=== PATIENT | female | born 1970 | race Caucasian/White ===

== ENCOUNTER 2022-05-06 06:48 | Outpatient (CLI) | payer OTHER, SELFPAY | END 2022-05-06 06:49 | disposition home or self-care (01) | PROVIDERS: PCP Physician Assistant Medical; Visit Provider Family Medicine | DX: M51.36 Other intervertebral disc degeneration, lumbar region (principal); M54.16 Radiculopathy, lumbar region | CPT/HCPCS: 62323; J0702; Q9966 ==

== ENCOUNTER 2024-01-10 02:55 | Emergency (ER) | payer OTHER, SELFPAY ==
[2024-01-10 03:06] VITALS: BP 144/84; PULSE 98; RESP 18; TEMP 35.9; O2SAT 95; BMI 37.1
--- NOTE | 2024-01-10 03:47 | CRLHL7_ITS ---
For Patients: As a result of the Century Cures Act, medical imaging exams and procedure reports are released immediately into your electronic medical record. You may view this report before your referring provider. If you have questions, please contact your health care provider. INDICATION: Abdominal pain and bloody stools, colonoscopy 5 days ago. COMPARISON: None. TECHNIQUE: CT of the abdomen and pelvis with intravenous contrast. Multiplanar axial, coronal, and sagittal reformats were reconstructed. Contrast: 122 mL Isovue 370. FINDINGS: Lung bases: There is a 2 millimeter punctate nodule in the right middle lobe on series 3, image 1. Very high density for size. Other calcified granulomas in the right lower lobe. Calcified lymph nodes in the right hilum consistent with old healed granulomatous disease. No further specific follow-up is recommended. Liver: Mild diffuse hepatic steatosis. Gallbladder and bile ducts: Cholecystectomy. No bile duct dilation. Pancreas: Normal. Spleen: Normal. Adrenal glands: Normal. Kidneys: Normal parenchyma. No cyst or solid mass. No calculi. No urinary tract dilation. Urinary bladder: Normal. Pelvis: No cyst or mass. Vessels: Normal. Widely patent mesenteric vasculature. Bowel: No dilated or inflamed bowel. Normal appendix. No stool burden. Lymph nodes: No adenopathy. Peritoneum: No ascites. No free air. Abdominal wall: No hernia. Bones: No fractures. No focal worrisome bone lesions. IMPRESSION: Mild diffuse hepatic steatosis. Normal CT appearance of the bowel. Please note that all CT scans at this facility use dose modulation, iterative reconstruction, and/or weight-based dosing when appropriate to reduce radiation dose to as low as reasonably achievable. Dictated by Nancy Gill MD @ 01/10/2024 4:57:53 AM (Electronically Signed)
[2024-01-10] MEDS: ONDANSETRON 2 MG/ML inj 4 MG IVP (03:57)
[2024-01-10 03:58] LABS: Basophils Percent Auto 0.2 % (0.0-3.0); Eosinophils Percent Auto 1.7 % (0.0-7.0); Hematocrit 44.8 % (33.0-51.0); Hemoglobin* 14.6 gm/dL (12.0-16.0); Immature Granulocytes Pct Auto 0.3 %; Mean Corpuscular HGB Conc 33 gm/dL (32-36); Mean Corpuscular Hemoglobin 27 pg (26-34); Mean Corpuscular Volume 83 fL (80-100); Neutrophils Percent Auto 76.8 % (42.0-72.0); Platelet Count* 300 K/uL (140-440); RDW Coefficient of Variation % 13.6 % (11.5-15.5); Red Blood Count 5.41 m/uL (4.00-5.20); White Blood Count* 13.72 K/uL (4.50-11.00)
[2024-01-10 04:01] LABS: Slide Review Reflex No
--- OUTSIDE RECORDS SUMMARY | 2024-01-10 04:03 | XMS_ITS | Clinical Summary ---
Author Organization [facility] Address [place], [place] [address] Care Team Providers Care Welt Maker Name Role Phone Vickie Ordoñez Primary Care Provider Allergies No known active allergies Medications Medication Sig Dispensed Refills Start Date End Date Status SUMAtriptan (IMITREX) 50 mg tabletIndications:Mi graine with aura, not intractable, without status migrainosus Take 1 Tablet (50 mg) by mouth every 2 hours if needed for Migraine. Give at minimum 2hrs apart. Max Dose: 200mg per 24hrs. 10 Tablet 3 10/22/2020 Active topiramate (TOPAMAX) 50 mg tabletIndications:Mi graine with aura, not intractable, without status migrainosus Take 1 Tablet (50 mg) by mouth in the morning and 1 Tablet (50 mg) in the evening. 180 Tablet 3 01/22/2022 Active cyclobenzaprine (FLEXERIL) 10 mg tabletIndications:Sa croiliac joint pain,Trochanteric bursitis of right hip Take 1 Tablet (10 mg) by mouth at bedtime if needed for Muscle Spasm. 20 Tablet 01/22/2022 Active acetaminophen (TYLENOL) 325 mg tabletIndications:St atus post hysteroscopy Take 1-2 Tablets (325-650 mg) by mouth every 4 hours if needed (mild pain). Max acetaminophen dose: 4000mg in 24 hrs. 100 Tablet 12/08/2022 Active ibuprofen (ADVIL; MOTRIN) 200 mg tabletIndications:St atus post hysteroscopy Take 2-4 Tablets (400-800 mg) by mouth every 6 hours if needed for Pain (mild pain). 100 Tablet 12/08/2022 Active sennosides-docusate (SENOKOT S) (8.6-50 mg) tabletIndications:Po st-op pain Take 1-2 Tablets by mouth 2 times daily if needed for Constipation. 30 Tablet 01/13/2023 Active nystatin (MYCOSTATIN) 100,000 unit/mL suspensionIndication s:Thrush Swish and swallow 5 mL (500,000 units) by mouth four times daily. 60 mL 04/07/2023 Active meclizine (ANTIVERT) 25 mg tabletIndications:Be nign paroxysmal positional vertigo, unspecified laterality TAKE 1 TABLET(25 MG) BY MOUTH EVERY 6 HOURS NEEDED FOR VERTIGO OR NAUSEA OR VOMITING 30 Tablet 07/01/2023 Active methylPREDNISolone (Medrol, Miles,) 4 mg tabletIndications:Soniya mbar radiculopathy Take by mouth as instructed per packaging. 21 Tablet 09/14/2023 Active ondansetron (ZOFRAN ODT) 4 mg disintegrating tabletIndications:Na usea DISSOLVE 1 TABLET(4 MG) ON THE TONGUE EVERY 8 HOURS NEEDED FOR NAUSEA OR VOMITING 30 Tablet 1 10/25/2023 Active polyethylene glycol-electrolyte (GOLYTELY) 236-22.74-6.74 -5.86 gram suspensionIndication s:Encounter for screening colonoscopy Drink 2 liters the day before colonoscopy and 2 liters 6 hours before colonoscopy appointment 4000 mL 12/28/2023 Active Hospital, Clinic, or Other Facility Administered Medication Ordered Dose Route Frequency Start Date End Date Status fentaNYL (PF) (SUBLIMAZE) 50 mcg/mL injection 200 mcgIndications:Encounter for screening colonoscopy 200 mcg IV ONE TIME 01/06/2024 01/06/2024 Ended midazolam (VERSED) injection 4 mgIndications:Encounter for screening colonoscopy 4 mg IV ONE TIME 01/06/2024 01/06/2024 End ed Active Problems Problem Noted Date Diagnosed Date Complex endometrial hyperplasia with atypia 02/2023 Status post hysteroscopy 12/08/2022 Post-menopausal bleeding 12/08/2022 Thickened endometrium 12/08/2022 Encounters Date Type Department Care Team Description 01/06/2024 10:00 AM CDT Office Visit [address] [place] [address] Cecilio Chou MD Procedure (Colonoscopy) 01/05/2024 Travel 01/05/2024 Telephone [address] [place] [address] Cecilio Chou MD Questions (diet) 01/01/2024 [address]phone [address] [place] [address] Cecilio Chou MD Appointment Reminder (Colonoscopy 01/06/24) 12/07/2023 [address]phone [address] [place] [address] Cecilio Chou MD Screening 11/17/2023 Telephone [address] [place] [address] Vickie Ordoñez PA Questions (Recommendation for Mother's PCP ) 10/23/2023 2:40 PM CDT Ancillary Procedure [address] [place] [address] 10/23/2023 Refill [address] [place] [address] Vickie Ordoñez PA Refill Request (Ondansetron) 10/23/2023 Travel from Last 3 Months Immunizations Name Administration Dates Next Due Td (Age >=7 Years) 07/06/1986 Tdap 06/14/2008 Family History Medical History Relation Name Comments Cancer Father Hyperlipidemia Father Hypertension Father Good Health Mother Cancer Other none Diabetes Paternal Grandmother Diabetes Paternal Uncle 1 Diabetes Paternal Uncle 2 Cancer-breast No Family History Relation Name Status Comments Father Alive Mother Alive Other Paternal Grandmother Paternal Uncle 1 Paternal Uncle 2 Social History Tobacco Use Types Packs/Day Years Used Date Smoking Tobacco: Never Smokeless Tobacco: Never Tobacco Cessation:Counseling Given: Not Answered Alcohol Use Standard Drinks/Week Comments Yes 0 (1 standard drink = 0.6 oz pur e alcohol) 1-2 times / month PHQ-2 Answer Date Recorded PHQ-2 TOTAL SCORE 0 01/22/2022 Social Connections Answer Date Recorded Frequency of Communication with Friends and Fami ly Not on file 09/19/2023 Financial Resource Strain Answer Date R ecorded Difficulty of Paying Living Expenses 3 09/15/2022 Difficulty of Paying Living Expenses Not on file 09/15/2022 Food Insecurity Answer Date Recorded Worried About Running Out of Food in the Last Ye ar 1 09/15/2022 Transportation Needs Answer Date Record ed Lack of Transportation (Medical) 1 09/15/2022 Housing Stability Answer Date Recorded Unable to Pay for Housing in the Last Year 1 09/15/2022 Sex and Gender Information Value Date Recorded Sex Assigned at Not on file Gender Identity Not on file Sexual Orientation Not on file Obstetrics History Para Term AB IAB SAB Ectopic Multiple Livin g Live Births 3 3 3 3 Date Outcome GA Total Labor Labor/2nd/3rd Weight Sex Type Anes PTL Lupe A1 A5 Name Clin Term Term Term Last Filed Vital Signs Vital Sign Reading Time Taken Comments Blood Pressure 122/72 01/06/2024 11:02 AM CDT Pulse 74 01/06/2024 11:02 AM CDT Temperature 36.2 ??C (97.1 ??F) 01/13/2023 11:45 AM C DT Respiratory Rate 14 01/06/2024 11:02 AM CDT Oxygen Saturation 97% 01/06/2024 11:02 AM CDT Inhaled Oxygen Concentration - - Weight 108.9 kg (240 lb) 07/20/2023 1:05 PM POPULATION HEALTH MANAGER Height 167.6 cm (5' 6) 01/13/2023 6:27 AM CDT Body Mass Index 38.74 01/13/2023 6:27 AM CDT Plan of Treatment Health Maintenance Due Date Last Done Comments HIV for age 15-65 09/26/1986 Hepatitis C screening for age 18-79 09/26/1989 Tetanus booster 06/14/2018 06/14/2008, 07/06/1986 Zoster (shingles) series for age 50+ (1 of 2) 09/26/2021 Depression screening for age 12+ 01/22/2023 01/22/2022, 10/22/2020, 07/07/2019, Additional history exists COVID-19 vaccine series ( - 2022- season) 2023 BMI (ht and wt on same day) for age 18+ 01/08/2024 01/07/2023, 01/22/2022, 10/22/2020, Additional history exists Influenza for age 50-64 03/06/2024 Pap test for age 21-65 07/05/2024 9, 07/05/2019, 06/14/2008 Mammogram for age 45-75 10/22/2024 10/23/2023, 02/05 Lipids for age 45-75 01/22/2027 01/22/2022, 07/05/20 Colonoscopy through age 75 01/05/2034 01/06/2024, Tdap Completed 06/14/2008 Pneumococcal series for age 6-64 Aged Out No longer eligible based on patient's age to complete this topic Procedures Procedure Name Priority Date/Time Associated Diagnosis Comments COLONOSCOPY 01/06/2024 10:23 AM CDT XR MAMMO CAILIN BILAT SCREEN Routine 10/23/2023 2:59 PM CDT Encounter for screening mammogram for malignant neoplasm of breast LIPID PANEL W REFLEX MEASURED LDL Routine 01/22/2022 9:49 AM CDT Screening cholesterol level CHILDREN'S LITERATURE PROFESSOR THIN PREP PAP SCREEN IMAGED Routine 07/05/2019 10:38 AM POPULATION HEALTH MANAGER Screening for cervical cancer from Last 3 Months or Most Recently Relevant to Health Maintenance Results * COLONOSCOPY (01/06/2024 10:23 AM CDT) 01/06/2024 10:2 3 AM CDT Narrative Transcriptions Cecilio Chou MD - 01/06/2024 10:51 AM CDT Patient Name: Page Perdue Procedure Date: 01/06/2024 Gender: Female Date of : 1970 Admit Type: Outpatient Procedure: Colonoscopy Proceduralist: Cecilio Chou MD , Lyubov Shearer RN(Nurse), Raquel Wu (Nurse) Indications/Pre-Op Diagnosis: Screening for colorectal malignant neoplasm, This is the patient's first colonoscopy Medications: Fentanyl 200 micrograms IV, Midazolam 4 mgIV, The level of sedation administered wasmoderate Procedure Description: The patient had risks, benefits and alternatives explained to andgave informed consent. The patient had a stable cardiopulmonary status and judged an adequate candidate for conscious sedation. The endoscope [id number] was passed through the anus andadvanced to the cecum, identified by appendiceal orifice and ileocecal valve.The colonoscopy was performed without difficulty. The patient toleratedthe procedure well. The quality of the bowel preparation was good. The ileocecal valve, appendiceal orifice, and rectum were photographed. Complications: No immediate complications. Estimated Blood Loss & Specimen: Estimated blood loss: none. Specimen collected - None Findings: The perianal and digital rectal examinations were normal. Scattered small-mouthed diverticula were found in the sigmoidcolon. The exam was otherwise without abnormality on direct and retroflexion views. Impressions/Post-Op Diagnosis: - Diverticulosis in the sigmoid colon. - The examination was otherwise normal on direct and retroflexionviews. - No specimens collected. Recommendation: - Patient has a contact number available for emergencies. The signsand symptoms of potential delayed complications were discussed with the patient. Return to normal activities tomorrow. Written discharge instructions were provided to the patient. - Resume previous diet. - Continue present medications. - Repeat colonoscopy in 10 years for screening purposes. Moderate Sedation: A time out was performed before the procedure. Moderate (conscious) sedation was administered by the endoscopy nurse and supervised bythe endoscopist. The following parameters were monitored: oxygensaturation, heart rate, blood pressure, EKG, CO2, respiratory rate, adequacy of pulmonary ventilation and reponse to care. Please refer to the patient's medical record flowsheets and nursing notes for moderate sedation details. Total physician intraservice time was 13 minutes. Cecilio Chou MD 01/06/2024 10:51:39 AM This report has been signed electronically. Note Initiated On: 01/06/2024 10:23 AM Procedure Code(s): --- Professional --- 12012, Colonoscopy, flexible; diagnostic, including collection of specimen(s) bybrushing or washing, when performed (separateprocedure) Diagnosis Code(s): --- Professional --- Z12.11, Encounter for screening formalignant neoplasm of colon K57.30, Diverticulosis of large intestine without perforation or abscess withoutbleeding CPT copyright 2022 [employer]. All rights reserved. The codes documented in this report are preliminary and upon plant engineering manager reviewmay be revised to meet current compliance requirements. Scope In: 10:34:23 AM Scope Withdrawal Time 0 hours 6 minutes 42 seconds Scope Out: 10:44:30 AM Cecilio Chou MD PROCEDURE ORD * XR MAMMO CAILIN BILAT SCREEN (10/23/2023 2:59 PM CDT) Anatomical Region Laterality Modality BREASTS, Breast Left, Breast Right Bilateral Mammography Impressions 10/23/2023 3:04 PM CDT ??There is no radiographic evidence for malignancy. ??Recommend annual mammograms. MAMMOGRAM ASSESSMENT: ??ACR 1 Negative PATIENTS: You will also receive a letter with your examination results in an easy to read format. ??If you have questions about your results, please contact your referring provider. Narrative 10/23/2023 3:04 PM CDT For Patients: As a result of the 21st Century Cures Act, medical imaging exams and procedure reports are released immediately into your electronic medical record. You may view this report before your referring provider. If you have questions, please contact your health care provider. XR MAMMO CAILIN BILAT SCREEN [[id number]] CLINICAL HISTORY: ??This is an asymptomatic 53 y.o. patient. INDICATION FOR EXAM: Mammogram Screening. TECHNIQUE: CC & MLO views were obtained. ??This study was evaluated with the assistance of Computer-Aided Detection. Breast Tomosynthesis was used in interpretation. COMPARISON FILM: Yes 02/05/22 [facility] ?? FINDINGS: ??The breasts have scattered areas of fibroglandular density. There are no dominant masses, suspicious micro calcifications or areas of architectural distortion. Vickie CLEMENS MAMMO * (ABNORMAL) LIPID PANEL W REFLEX MEASURED LDL (01/22/2022 9:49 AM CDT) CHOLESTEROL,TOTAL 194 100 - 199 mg/dL 01/22/2022 6:12 PM CDT [facility] TRIGLYCERIDES 160(H) <150 mg/dL 01/22/2022 6:12 PM CDT [facility] HDL CHOLESTEROL 48 >40 mg/dL 6:12 PM CDT [facility] NON-HDL CHOLESTEROL 146(H) <145 mg/dl 01/22/2022 6:12 PM CDT [facility] CHOL/HDL RATIO 4.04 <4.50 01/22/2022 6:12 PM CDT [facility] LDL CHOLESTEROL 114 <=130 mg/dL 01/22/2022 6:12 PM CDT [facility] VLDL CHOLESTEROL 32(H) <=30 mg/dL 01/22/2022 6:12 PM CDT [facility] PROVIDER ORDERED STATUS RANDOM 01/22/2022 6:12 PM CDT [facility] Blood BLOOD SPECIMEN / Unknown Venipuncture / Unknown 01/22/2022 9:49 AM CDT 01/22/2022 9:50 AM CDT Vickie CLEMENS [facility] [address] [place] [address], [place] * CHILDREN'S LITERATURE PROFESSOR THIN PREP PAP SCREEN IMAGED (07/05/2019 10:38 AM POPULATION HEALTH MANAGER) Case Report Gynecologic Cytology Report ? Case: [id number] ? Authorizing Provider: ??Vickie Ordoñez PA Collected: ? 07/05/2019 1038 ? Ordering Location: ? [facility] ?? Received: ?07/05/2019 1110 ? Clinic ? First Screen: ?Hemalatha Dorado ? Specimen: ?CHILDREN'S LITERATURE PROFESSOR ThinPrep Vial Screening, Cervical ? 07/15/2019 3:04 PM POPULATION HEALTH MANAGER [facility] INTERPRETATION/ RESULT NEGATIVE FOR INTRAEPITHELIAL LESION OR MALIGNANCY (NIL) (none) 07/15/2019 3:04 PM POPULATION HEALTH MANAGER [facility] IMEN ADEQUACY Satisfactory for evaluation Endocervical component present 07/15/2019 3:04 PM POPULATION HEALTH MANAGER [facility] HPV REQUEST HPV and PAP 07/15/2019 3:04 PM POPULATION HEALTH MANAGER [facility] Date of LMP 05-30-19 07/15/2019 3:04 PM POPULATION HEALTH MANAGER [facility] Last Pap Date 200707/15/2019 3:04 PM POPULATION HEALTH MANAGER [facility] Last Pap Result NIL 0 3:04 PM POPULATION HEALTH MANAGER [facility] Abnormal Pap or [place] Bx in last 5 years No 07/15/2019 3:04 PM POPULATION HEALTH MANAGER [facility] Menstrual Status Regular Periods 07/15/2019 3:04 PM POPULATION HEALTH MANAGER [facility] [place] Bx Done Today No 07/15/2019 3:04 PM POPULATION HEALTH MANAGER [facility] Additional Information None given 07/15/2019 3:04 PM [facility] Comment: Cytology is screened at [facility] - [address], [place] [address] and [facility] - [address] [place] [address] and [facility] - [address] [place] [address] Interpreted at [facility] - [address], [place] [address] Automated Review Successful 07/15/2019 3:04 PM [facility] Comment:Specimen processed s uccessfully by automated traffic agent device, ThinPrep Imaging System, [employer] ANCILLARY TESTING CHILDREN'S LITERATURE PROFESSOR HPV Ordered, Please see separate report 07/15/2019 3:04 PM [facility] Note The pap test is a screening technique, not a diagnostic procedure. It is used primarily to screen for squamous cancers and precursor lesions. Published studies have shown that it is subject to both false negative and false positive results. The pap test should not be used as the sole means to diagnose or exclude pre-malignant and malignant lesions. 07/15/2019 3:04 PM [facility] Other (Cervical) Non-Blood / Unknown 07/05/2019 10:38 AM POPULATION HEALTH MANAGER 07/05/2019 11:10 AM POPULATION HEALTH MANAGER Vickie CLEMENS PATHOLOGY/CY[facility]OL [facility] [address] [place] [address], [place] from Last 3 Months or Most Recently Relevant to Health Maintenance Advance Directives * Full Code (Latest Code Status on File) Date Activated Date Inactivated Comments 01/13/2023 6:00 AM 01/13/2023 2:56 PM Question Answer Comments Code Status Discussion: Unable to Assess Preferences, Provider to review later * Full Code Date Activated Date Inactivated Comments 12/08/2022 7:26 AM 12/08/2022 1:17 PM Question Answer Comments Code Status Discussion: Reviewed Preferences Care Teams Welt Maker Relationship Specialty Start Date End Date Vickie Ordoñez PA [address] [place] [address] PCP - General Physician Transmission Superintendent 10/22/18
--- OUTSIDE RECORDS SUMMARY | 2024-01-10 04:03 | XMS_ITS | Continuity of Care Document ---
Author Organization [facility] Address [address] [place] [address] Phone Care Team Providers Care Police Department Secretary Name Role Phone Ruben Kapadia Unavailable Unavailable Allergies, Adverse Reactions, Alerts Substance Reaction Status Criticality No Known Allergies Active No Inform ation Medications Medication Instructions Dosage Effective Dates (start - stop) Status Comments prednisone 20 mg tablet 1 tab BID 5 days. 1 tab QAM 5 days - Active meloxicam 15 mg tablet take 1 tablet by oral route every day 15 MG - Active CYCLOBENZAPRINE HCL (unknown strength) Not Available - Active TOPAMAX (unknown strength) Not Available - Active ZOFRAN (unknown strength) Not Available - Active IMITREX (unknown strength) Not Available - Active Procedures Procedure Date Office/Outpatient Visit,[facility], [facility] [place] 2020 Advance Directives Directive Yes / No Effective Date File Name No Information Encounters Encounter Description Practice Location Reason(s) For Visit Diagnoses Date Provider Providers Copied on Encounter Office/Outpati ent Visit,[place], [place] [facility] , [address], [place], [place], [id number], [place] tel:[phone] [facility] - [facility] Other spondylosis , lumbar region Zack Miranda. [facility], [address] [facility] [address], [place], [place], [id number], [place]. tel:[phone] Referring Provider: Vickie Ordoñez, [employer] [address], [place], [address]. tel:[phone] Family History Family Member Type Diagnosis Age At Onset No Information Payers Payer name Insurance type Covered libertarian ID Carmen galaviz(s) [employer] CI [id number] Social History Type Description Quantity Date Captured Comments Alcohol Use Details Unknown Caffeine Use Details Unknown Tobacco Use Status Current non-smoker Smoking Status Never smoker Non-Smoking Tobacco Use Details : No Details Available : No Details Available Sex Female Vital Signs Date / Time: Height Weight BMI Pulse Rate Blood Pressure Temperature Respiratory Rate Body Surface Area Head Circumference Head Circ. Percentile Wt./Mauricio. Percentile BMI percentile Pulse Ox Inhaled Ox 8:31 AM 66.00 in 106.322 kg (234.40 lbs) 37.8 3 kg/m eter (2) Chief Complaint And Reason For Visit No Information Reason For Referral Reason For Referral No Information History Of Present Illness Encounter Date Complaint History Of Prese nt Illness No Information Functional Status Date Functional Assessmen t No Information Instructions Date Instruction Additional Infor mation No Information Assessments Type Assessment Date assessment Other spondylosis, lumbar region Patient Care Teams Name Effective Dates (start - stop) Status Members No Information
--- OUTSIDE RECORDS SUMMARY | 2024-01-10 04:03 | XMS_ITS | Continuity of Care Document ---
Author Organization [facility] Address [address] [place] [address] Phone Care Team Providers Care Rn New Graduate Name Role Phone Ruben Kapadia Unavailable Unavailable Allergies, Adverse Reactions, Alerts Substance Reaction Status Criticality No Known Allergies Active No Inform ation Medications Medication Instructions Dosage Effective Dates (start - stop) Status Comments meloxicam 15 mg tablet take 1 tablet by oral route every day 15 MG - Active prednisone 20 mg tablet 1 tab BID 5 days. 1 tab QAM 5 days - Active IMITREX (unknown strength) Not Available - Active ZOFRAN (unknown strength) Not Available - Active TOPAMAX (unknown strength) Not Available - Active CYCLOBENZAPRINE HCL (unknown strength) Not Available - Active Procedures Procedure Date Office/Outpatient Visit,[facility], [facility] [place] 2020 Advance Directives Directive Yes / No Effective Date File Name No Information Encounters Encounter Description Practice Location Reason(s) For Visit Diagnoses Date Provider Providers Copied on Encounter Office/Outpati ent Visit,[place], [place] [facility] , [address], [place], [place], [id number], [place] tel:[phone] [facility] - [facility] Other spondylosis , lumbar region Zack Miranda. [facility], [address] [facility] [address], [place], [place], [id number], [place]. tel:[phone] Referring Provider: Vickie Ordoñez, [employer] [address], [place], [address]. tel:[phone] Family History Family Member Type Diagnosis Age At Onset No Information Payers Payer name Insurance type Covered libertarian ID Carmen galaviz(s) [employer] [id number] Social History Type Description Quantity Date Captured [...]
[2024-01-10 04:30] LABS: Chloride* 110 mmol/L (96-114); Sodium* 141 mmol/L (135-149)
[2024-01-10 04:33] LABS: Anion Gap 9 mEq/L (7-15); Blood Urea Nitrogen* 16 mg/dL (7-30); Carbon Dioxide* 22 mmol/L (20-32); Creatinine* 0.7 mg/dL (0.5-1.5); Est. Creatinine Clearance* 88.01; Estimated Glomerular Filt Rate 104 ml/min
[2024-01-10 04:34] LABS: Calcium* 9.4 mg/dL (8.4-10.6); Glucose* 136 mg/dL (60-115)
--- NOTE | 2024-01-10 05:07 | ED_ITS ---
HPI - Abdominal Pain General Chief Complaint: Abdominal Pain Stated Complaint: black stool post colonoscopy Time Seen by Provider: 01/10/24 03:42 History of Present Illness HPI narrative: Patient is a 53-year-old woman who had a colonoscopy 2-3 days ago showing mild diverticulosis. Over the last 24 hours she has had some crampy abdominal pain as well as some occasional dark stools. She has had no fevers no chills no night sweats no cough no shortness of breath. The pain is resolved and the stools are minimal. No other findings were noted during her colonoscopy she takes no blood thinners is on no medication. She has had no further abdominal pain since she has arrived. Related Data Allergies Allergy/AdvReac Type Severity Reaction Status Date / Time No Known Drug Allergies Allergy Verified 01/10/24 03:10 Review of Systems Status of ROS Reports: 10 or more systems reviewed and unremarkable except as noted in History and below Exam Narrative: Exam Narrative: EXAM GENERAL: Patient appears comfortable and well. EYES: No scleral icterus. LYMPH: No supraclavicular or cervical lymphadenopathy. SKIN: Visible skin seen during exam normal or with benign process only. EXT: No dependent lower extremity pedal edema. HEART: Regular rate and rhythm with no murmurs, rubs, or gallops. LUNGS: Clear to auscultation bilaterally with no crackles or wheezes. ABD: Soft, non tender, non distended. PSYCH: Good eye contact, speech is not pressured. Const: Vital Signs, click to edit/add: Vital Signs - 24 hr 01/10/24 03:06 Temperature 96.7 F L Pulse Rate [Left P ulse Oximeter] 98 Respiratory Rate 18 Blood Pressure [Ri ght Upper Arm] 144/84 H Pulse Oximetry 95 Oxygen Delivery Me thod Room Air Course Vital Signs Vital signs: Initial Vital Signs Temperature 96.7 F L 01/10/24 03:06 Temperature Source Temporal Artery Scan 01/10/24 03:06 Pulse Rate 98 01/10/24 03:06 Pulse Rhythm Regular 01/10/24 03:06 Respiratory Rate 18 01/10/24 03:06 Blood Pressure 144/84 H 01/10/24 03:06 Blood Pressure Mean 104 01/10/24 03:06 Blood Pressure Position Sitting 01/10/24 03:06 Pulse Oximetry 95 01/10/24 03:06 Oxygen Delivery Method Room Air 01/10/24 03:06 Vital Signs Temperature 96.7 F L 01/10/24 03:06 Pulse Rate 98 01/10/24 03:06 Respiratory Rate 18 01/10/24 03:06 Blood Pressure 144/84 H 01/10/24 03:06 Pulse Oximetry 95 01/10/24 03:06 Oxygen Delivery Method Room Air 01/10/24 03:06 Temperature 96.7 F L 01/10/24 03:06 Pulse Rate 98 01/10/24 03:06 Respiratory Rate 18 01/10/24 03:06 Blood Pressure 144/84 H 01/10/24 03:06 Pulse Oximetry 95 01/10/24 03:06 Oxygen Delivery Method Room Air 01/10/24 03:06 Medications Administered Medications: Generic Name Dose Route Start Last Admin Trade Name Freq PRN Reason Stop Dose Admin Ondansetron HCl 4 mg 01/10/24 03:53 01/10/24 03:57 Ondansetron 2 Mg/Ml Inj IVP 4 mg ONCE PRN Administration MDM - Abdominal Pain MDM Narrative Medical decision making narrative: Patient is a 53-year-old woman comes in today with dark stools occasionally as well as abdominal cramping several days after a colonoscopy. In workup is largely unremarkable she does have leukocytosis but the rest of her labs are reasonable. Most importantly CT abdomen pelvis is unremarkable. This time I did give her the advice advance her diet activity as tolerated follow-up with her primary physician as needed. Differential diagnosis includes but not limited to acute diverticulitis colonic perforation colitis viral syndrome GI bleed. Lab Data Labs: Lab Results 01/10/24 Range/Units 03:40 WBC 13.72 H (4.50-11.00) K/uL RBC 5.41 H (4.00-5.20) m/uL Hgb 14.6 (12.0-16.0) gm/dL Hct 44.8 (33.0-51.0) % MCV 83 (80-100) fL MCH 27 (26-34) pg MCHC 33 (32-36) gm/dL RDW Coeff of Evan 13.6 (11.5-15.5) % Plt Count 300 (140-440) K/uL Neut % (Auto) 76.8 H (42.0-72.0) % Lymph % (Auto) 14.0 L (20-44) % [place] % (Auto) 7.0 (0.0-11.0) % Eos % (Auto) 1.7 (0.0-7.0) % Baso % (Auto) 0.2 (0.0-3.0) % Neut # (Auto) 10.50 H (1.7-7.0) K/uL Lymph # (Auto) 1.90 (0.90-2.90) K/uL [place] # (Auto) 1.00 H (0.00-0.90) K/UL Eos # (Auto) 0.20 (0.00-0.50) K/uL Baso # (Auto) 0.00 (0.00-0.30) K/uL Abs Immat Gran (auto) 0.00 (0.00-0.30) K/uL Imm/Tot Granulo (auto) 0.3 % Sodium 141 (135-149) mmol/L Potassium 4.0 (3.6-5.1) mmol/L Chloride 110 (96-114) mmol/L Carbon Dioxide 22 (20-32) mmol/L Anion Gap 9 (7-15) mEq/L BUN 16 (7-30) mg/dL Creatinine 0.7 (0.5-1.5) mg/dL Estimated Creat Clear 88.01 Estimated GFR 104 ml/min Glucose 136 H (60-115) mg/dL Calcium 9.4 (8.4-10.6) mg/dL Discharge Plan Discharge Clinical Impression: Abdominal pain Patient Disposition: Home, Self-Care Condition: Stable Instructions: Abdominal Pain (ED) Additional Instructions: Advance diet activity as tolerated Follow-up with your doctor as needed. Activity Level: No Restrictions Discharge Diet: Regular Follow Up/Referrals: Vickie Ordoñez PA-C [Primary Care Provider] - Stand Alone Forms: [facility] Info Instructions
[2024-01-10 05:10] LABS: INR 0.82 (0.91-1.10); Prothrombin Time 11.7 Seconds
[2024-01-10 05:11] LABS: Partial Thromboplastin Time* 31 Seconds (23-33)
[2024-01-10 05:16] VITALS: BP 136/72; PULSE 74; RESP 18; O2SAT 98
== END 2024-01-10 05:18 | disposition home or self-care (01) ==
PROVIDERS: Emergency Provider Internal Medicine; PCP Physician Assistant Medical
DX: R10.9 Unspecified abdominal pain (principal)
CPT/HCPCS: 36415; 74177; 80048; 85025; 85610; 85730; 96374; 99283; 99284; J2405; Q9967

== ENCOUNTER 2025-06-16 06:29 | Day surgery (SDC) | payer OTHER, SELFPAY ==
[2025-06-16] VITALS (11 sets, daily range): BP systolic 124–141; BP diastolic 60–87; PULSE 61–78; RESP 16; TEMP 36.7; O2SAT 96–99
--- NOTE | 2025-06-16 07:21 | W.PM.H&PU ---
History & Physical Update History & Physical Update H&P Reviewed and patient assessed: No changes noted
--- NOTE | 2025-06-16 07:21 | PM.ORPRC ---
Procedure Note Date of procedure: 06/16/25 Procedure: PREOPERATIVE DIAGNOSIS: 1. Left middle finger digital mucous cyst POSTOPERATIVE DIAGNOSIS: 1. Left middle finger digital mucous cyst PROCEDURE: 1. Left middle finger digital mucous cyst excision SURGEON: Venkatesh Vigil MD. HISTORIC INTERPRETER: Doris Buckley P.A.-C. An assistant professor sculpture was critical for this case to aid in patient positioning, tissue retraction, limb manipulation/positioning, and closure. 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 Patient subsequently elected to proceed with surgical intervention consisting of left middle finger digital mucous cyst excision. Prior to surgery, the risks and benefits of the procedure were discussed with patient, all questions were answered, and informed consent was obtained. DESCRIPTION OF PROCEDURE: Patient was seen preoperatively and operative site was marked. Digital nerve block was performed by the physician assistant professor sculpture using 1% plain lidocaine and 0.5% plain bupivacaine. Patient was then brought to the operating room and placed in supine position or table. The operative extremity was prepped and draped in the usual sterile fashion. A surgical time-out was performed confirming patient identity, surgical procedure, and surgical site. Digital tourniquet was placed on the operative finger. A longitudinal incision was made over the dorsal ulnar aspect of the left middle finger starting proximal to the DIP joint and extending distally over the underlying cyst. The cyst was sharply dissected circumferentially and removed in its entirety with its stalk, which was traced to the DIP joint. While excising the cyst clear, small amount of gelatinous fluid was noted to emanate from the cyst. The capsule in the interval between the extensor tendon and collateral ligament was sharply excised. Small osteophyte off the distal phalanx was removed with a small rongeur with care taken to preserve the extensor tendon attachment. The base of the cyst was cauterized with bipolar electrocautery. The digital tourniquet was then removed, and hemostasis was achieved with bipolar electrocautery. Total tourniquet time was 24 minutes. Wound was the irrigated with normal saline. Skin incision was closed with 4-0 nylon horizontal mattress sutures, and a sterile dressing was applied. Patient was then transferred to the recovery room in stable condition. POSTOPERATIVE PLAN: 1. Patient will be discharged to home day of surgery. 2. She was given instructions for wound care and finger range of motion exercises. 3. Acetaminophen and/or ibuprofen as needed for pain control. 4. Return to the clinic for follow-up evaluation in 10-14 days for wound check and suture removal.
[2025-06-16] MEDS: LIDOCAINE 1% MDV INJECTION (07:23)
[2025-06-16] MEDS: BUPIVACAINE 0.5% 30 ML INJECTION (07:23)
[2025-06-16] MEDS: ETHYL CHLORIDE 1 APPLICATION 1 APPLIC TOPICAL (07:23)
--- NOTE | 2025-06-16 08:31 | SUR.PHASEII ---
Reviewed d/c instructions with pt. all questions answered. Pt ambulated out to car by self.
== END 2025-06-16 08:32 | disposition home or self-care (01) ==
LOC: OR 06:30
PROVIDERS: PCP Physician Assistant Medical; Visit Provider Orthopaedic Surgery
PROC: (CPT 26160; principal; 2025-06-16 07:30)
DX: M67.442 Ganglion, left hand (principal)
CPT/HCPCS: 26160; J2003; J0665